=== PATIENT | male | born 1965 | race Caucasian/White ===

== ENCOUNTER 2018-09-18 11:16 | Inpatient (IN) | payer MEDICAID ==
[2018-09-18 12:12] LABS: ADD MAN DIFF? NO
[2018-09-18 12:15] LABS: ABNORMAL IP MESSAGE 1; BASOPHILS % 0.3 % (0.0-2.0); HEMATOCRIT 29.7 % (42.0-52.0); HEMOGLOBIN 9.6 g/dl (14.0-18.0); LYMPHOCYTES # 0.3 10^3/ul (0.8-2.9); LYMPHOCYTES % 6.4 % (15.0-51.0); MEAN CORPUSCULAR HEMOGLOBIN 28.3 pg (29.0-33.0); MEAN CORPUSCULAR HGB CONC 32.3 g/dl (32.0-37.0); MEAN CORPUSCULAR VOLUME 87.6 fl (82.0-101.0); MONOCYTE # 0.4 10^3/ul (0.3-0.9); MONOCYTES % 9.5 % (0.0-11.0); NEUTROPHIL # 3.2 10^3/ul (1.6-7.5); POSITIVE DIFF @See below; RED BLOOD COUNT 3.39 10^6/ul (4.70-6.10); RED CELL DISTRIBUTION WIDTH 21.7 % (11.5-14.5)
[2018-09-18 12:15] LABS: WHITE BLOOD COUNT 3.9 10^3/ul (4.8-10.8)
[2018-09-18 12:20] LABS: PLATELET COUNT 23 10^3/UL (140-415)
[2018-09-18 12:21] LABS: PATH REVIEW? YES
[2018-09-18 12:35] LABS: ALANINE AMINOTRANSFERASE 80 IU/L (13-69); ALBUMIN 3.5 g/dl (3.3-4.9); ALBUMIN/GLOBULIN RATIO 0.94; ALKALINE PHOSPHATASE 179 IU/L (42-121); ANION GAP 9 (5-13); ASPARTATE AMINO TRANSFERASE 161 IU/L (15-46); BILIRUBIN,TOTAL 3.9 mg/dl (0.2-1.3); BLOOD UREA NITROGEN 16 mg/dl (7-20); CALCIUM 8.7 mg/dl (8.4-10.2); CARBON DIOXIDE 26 mmol/L (21-31); CHLORIDE 106 mmol/L (97-110); CREATININE 0.51 mg/dl (0.61-1.24); Estimated GFR > 60 mL/min (>60); GLUCOSE 192 mg/dl (70-220); POTASSIUM 3.5 mmol/L (3.5-5.1); SODIUM 141 mmol/L (135-144); TOTAL PROTEIN 7.2 g/dl (6.1-8.1)
[2018-09-18] MEDS: LORAZEPAM 2 MG INJ IV ×2 (12:37→19:39)
[2018-09-18] MEDS: SOD CHLORIDE 0.9% 1,000 ML IV ×2 (12:37→15:58)
[2018-09-18 12:41] LABS: ACETAMINOPHEN < 10.0 ug/ml (10.0-30.0); SALICYLATE < 1.0 mg/dl (5.0-30.0)
[2018-09-18 12:45] LABS: ADD UMIC YES; UR ASCORBIC ACID NEGATIVE (NEGATIVE); UR BILIRUBIN (Dip) NEGATIVE (NEGATIVE); UR BLOOD (Dip) 2+ mg/dL (NEGATIVE); UR CLARITY CLEAR (CLEAR); UR COLOR AMBER (YELLOW); UR GLUCOSE (Dip) 3+ mg/dL (NEGATIVE); UR KETONES (Dip) 1+ mg/dL (NEGATIVE); UR LEUKOCYTE ESTERASE (Dip) NEGATIVE Leu/ul (NEGATIVE); UR NITRITE (Dip) NEGATIVE (NEGATIVE); UR RBC 41 /HPF (0-5); UR SPECIFIC GRAVITY (Dip) 1.027 (1.003-1.030); UR TOTAL PROTEIN (Dip) 1+ mg/dl (NEGATIVE); UR UROBILINOGEN (Dip) 2+ mg/dL (NEGATIVE); UR WBC 2 /HPF (0-5)
[2018-09-18 12:50] LABS: ANISOCYTOSIS 1+ (0-0); BAND NEUTROPHILS #M 0.1 10^3/ul (0.0-0.6); BAND NEUTROPHILS % (M) 4 % (0-4); ERYTHROBLAST% (NRBC) (M) 1 % (0-0); HYPOCHROMASIA 3+ (0-0); LYMPHOCYTES #M 0.1 10^3/ul (0.8-2.9); LYMPHOCYTES % (M) 4 % (15-51); MONOCYTE #M 0.1 10^3/ul (0.3-0.9); MONOCYTES % (M) 3 % (0-11); PLATELET ESTIMATE DECREASED; POLYCHROMASIA 1+ (0-0); SEG NEUT #M 3.5 10^3/ul (1.6-7.5); SEGMENTED NEUTROPHILS (M) % 89 % (39-77)
[2018-09-18 13:15] LABS: AMPHETAMINE/METHAMPHETAMINE Negative (NEGATIVE); BARBITURATES Negative (NEGATIVE); BENZODIAZEPINES Negative (NEGATIVE); CANNABINOIDS Negative (NEGATIVE); COCAINE Negative (NEGATIVE); OPIATES Negative (NEGATIVE)
[2018-09-18] MEDS ORDERED: NACL 0.9% 3 ML SYG IV (15:30)
[2018-09-18] MEDS ORDERED: MAGNESIUM HYDROXIDE 30ML CUP PO (15:30)
[2018-09-18] MEDS ORDERED: DOCUSATE SODIUM 100 MG CAP PO (15:30)
[2018-09-18 15:44] LABS: HAAIG REFLEX REFLEX FILED
[2018-09-18] MEDS: CHLORDIAZEPOXIDE 25 MG CAP PO ×2 (15:58→22:46)
[2018-09-18] MEDS ORDERED: hydrALAzine 20 MG INJ IV (16:00)
[2018-09-18 16:05] LABS: IRON 250 ug/dl (35-150)
[2018-09-18] MEDS: ONDANSETRON 4 MG INJ IV (16:07)
[2018-09-18 16:15] LABS: % IRON SATURATION 85 % SAT (22-52); TOTAL IRON BINDING CAPACITY 293 ug/dl (241-421)
[2018-09-18] MEDS: MULTIVITAMINS 10 ML, THIAMINE 100 MG, FOLIC ACID 1 MG in SOD CHLORIDE 0.9% 1,000 ML IVPB (16:19)
[2018-09-18 16:39] LABS: HEPATITIS B SURFACE ANTIGEN NEGATIVE (NEGATIVE)
[2018-09-18 16:58] LABS: HEPATITIS B CORE ANTIBODY NEGATIVE (NEGATIVE); HEPATITIS C VIRAL ANTIBODY NEGATIVE (NEGATIVE)
[2018-09-18 23:34] LABS: ADD MAN DIFF? NO
[2018-09-18 23:37] LABS: WHITE BLOOD COUNT 4.6 10^3/ul (4.8-10.8)
[2018-09-18 23:37] LABS: ABNORMAL IP MESSAGE 1; BASOPHILS % 0.2 % (0.0-2.0); EOSINOPHILS % 0.2 % (0.0-7.0); HEMATOCRIT 25.7 % (42.0-52.0); HEMOGLOBIN 8.5 g/dl (14.0-18.0); LYMPHOCYTES # 0.3 10^3/ul (0.8-2.9); LYMPHOCYTES % 6.7 % (15.0-51.0); MEAN CORPUSCULAR HEMOGLOBIN 29.2 pg (29.0-33.0); MEAN CORPUSCULAR HGB CONC 33.1 g/dl (32.0-37.0); MEAN CORPUSCULAR VOLUME 88.3 fl (82.0-101.0); MONOCYTE # 0.5 10^3/ul (0.3-0.9); MONOCYTES % 10.6 % (0.0-11.0); NEUTROPHIL # 3.8 10^3/ul (1.6-7.5); NEUTROPHILS % 81.7 % (39.0-77.0); NUCLEATED RED BLOOD CELLS% 0.4 /100WBC (0.0-0.0); POSITIVE DIFF @See below; RED BLOOD COUNT 2.91 10^6/ul (4.70-6.10); RED CELL DISTRIBUTION WIDTH 21.7 % (11.5-14.5)
[2018-09-18 23:56] LABS: PLATELET COUNT 24 10^3/UL (140-415)
[2018-09-19] MEDS: SOD CHLORIDE 0.9% 1,000 ML IV ×4 (01:20→21:20)
[2018-09-19] MEDS: PANTOPRAZOLE IV 80 MG in SOD CHLORIDE 0.9% 100 ML IV ×3 (01:36→21:59)
[2018-09-19] MEDS: LORAZEPAM 2 MG INJ IV (01:47)
[2018-09-19] MEDS ORDERED: PANTOPRAZOLE 40 MG INJ IV (06:00)
[2018-09-19 06:26] LABS: WHITE BLOOD COUNT 3.4 10^3/ul (4.8-10.8)
[2018-09-19 06:26] LABS: ABNORMAL IP MESSAGE 1; HEMOGLOBIN 8.2 g/dl (14.0-18.0); MEAN CORPUSCULAR HEMOGLOBIN 29.3 pg (29.0-33.0); MEAN CORPUSCULAR HGB CONC 32.8 g/dl (32.0-37.0); MEAN CORPUSCULAR VOLUME 89.3 fl (82.0-101.0); POSITIVE DIFF @See below; RED CELL DISTRIBUTION WIDTH 21.9 % (11.5-14.5)
[2018-09-19 06:44] LABS: ADD MAN DIFF? YES; ALANINE AMINOTRANSFERASE 62 IU/L (13-69); ALBUMIN 2.8 g/dl (3.3-4.9); ALBUMIN/GLOBULIN RATIO 0.84; ALKALINE PHOSPHATASE 140 IU/L (42-121); ANION GAP 5 (5-13); ASPARTATE AMINO TRANSFERASE 106 IU/L (15-46); BILIRUBIN,INDIRECT 2.2 mg/dl (0-1.1); BILIRUBIN,TOTAL 2.4 mg/dl (0.2-1.3); BLOOD UREA NITROGEN 15 mg/dl (7-20); CALCIUM 8.2 mg/dl (8.4-10.2); CARBON DIOXIDE 25 mmol/L (21-31); CHLORIDE 111 mmol/L (97-110); CREATININE 0.54 mg/dl (0.61-1.24); Estimated GFR > 60 mL/min (>60); GLUCOSE 129 mg/dl (70-220); PLATELET COUNT 22 10^3/UL (140-415); POTASSIUM 3.3 mmol/L (3.5-5.1); SODIUM 141 mmol/L (135-144); TOTAL PROTEIN 6.1 g/dl (6.1-8.1)
[2018-09-19 07:29] LABS: ANISOCYTOSIS 2+ (0-0); BAND NEUTROPHILS % (M) 2 % (0-4); BASOPHILS % (M) 1 % (0-2); ERYTHROBLAST% (NRBC) (M) 1 % (0-0); HYPOCHROMASIA 1+ (0-0); LYMPHOCYTES #M 0.5 10^3/ul (0.8-2.9); LYMPHOCYTES % (M) 16 % (15-51); MONOCYTE #M 0.1 10^3/ul (0.3-0.9); MONOCYTES % (M) 3 % (0-11); PLATELET ESTIMATE DECREASED; POLYCHROMASIA 1+ (0-0); SEG NEUT #M 2.7 10^3/ul (1.6-7.5); SEGMENTED NEUTROPHILS (M) % 78 % (39-77); SMUDGE%M 22 % (0-0); TARGET CELLS 1+ (0-0)
[2018-09-19] MEDS: MULTIVITAMINS 10 ML, THIAMINE 100 MG, FOLIC ACID 1 MG in SOD CHLORIDE 0.9% 1,000 ML IVPB (08:33)
[2018-09-19] MEDS: CHLORDIAZEPOXIDE 25 MG CAP PO ×3 (08:33→22:30)
[2018-09-19] MEDS ORDERED: MULTIVITAMINS 10 ML, THIAMINE 100 MG, FOLIC ACID 1 MG in SOD CHLORIDE 0.9% 1,000 ML IVPB (09:00)
[2018-09-19] MEDS: POTASSIUM CHLORIDE (SR) 20 MEQ TAB PO (09:53)
[2018-09-19 16:55] LABS: INR 1.45; PROTIME 17.7 Sec (11.9-14.9); PT RATIO 1.4
[2018-09-19 23:06] LABS: TYPE AND SCREEN 1 1
[2018-09-20] MEDS: SOD CHLORIDE 0.9% 1,000 ML IV ×3 (03:54→17:20)
[2018-09-20 06:09] LABS: ADD MAN DIFF? NO
[2018-09-20 06:16] LABS: ABNORMAL IP MESSAGE 1; EOSINOPHILS % 1.3 % (0.0-7.0); HEMOGLOBIN 8.8 g/dl (14.0-18.0); LYMPHOCYTES # 0.8 10^3/ul (0.8-2.9); LYMPHOCYTES % 24.6 % (15.0-51.0); MEAN CORPUSCULAR HEMOGLOBIN 28.9 pg (29.0-33.0); MEAN CORPUSCULAR HGB CONC 32.6 g/dl (32.0-37.0); MEAN CORPUSCULAR VOLUME 88.8 fl (82.0-101.0); MONOCYTE # 0.5 10^3/ul (0.3-0.9); MONOCYTES % 14.9 % (0.0-11.0); NEUTROPHIL # 1.8 10^3/ul (1.6-7.5); NEUTROPHILS % 57.9 % (39.0-77.0); PLATELET COUNT 39 10^3/UL (140-415); POSITIVE DIFF @See below; RED BLOOD COUNT 3.04 10^6/ul (4.70-6.10); RED CELL DISTRIBUTION WIDTH 21.1 % (11.5-14.5)
[2018-09-20 06:16] LABS: WHITE BLOOD COUNT 3.1 10^3/ul (4.8-10.8)
[2018-09-20 06:48] LABS: ALANINE AMINOTRANSFERASE 63 IU/L (13-69); ALBUMIN/GLOBULIN RATIO 0.83; ALKALINE PHOSPHATASE 178 IU/L (42-121); ANION GAP 8 (5-13); ASPARTATE AMINO TRANSFERASE 107 IU/L (15-46); BILIRUBIN,INDIRECT 1.8 mg/dl (0-1.1); BLOOD UREA NITROGEN 9 mg/dl (7-20); CALCIUM 8.3 mg/dl (8.4-10.2); CARBON DIOXIDE 23 mmol/L (21-31); CHLORIDE 109 mmol/L (97-110); CREATININE 0.52 mg/dl (0.61-1.24); Estimated GFR > 60 mL/min (>60); GLUCOSE 104 mg/dl (70-220); MAGNESIUM 1.9 mg/dl (1.7-2.5); POTASSIUM 3.1 mmol/L (3.5-5.1); SODIUM 140 mmol/L (135-144); TOTAL PROTEIN 6.6 g/dl (6.1-8.1)
[2018-09-20] MEDS: PANTOPRAZOLE IV 80 MG in SOD CHLORIDE 0.9% 100 ML IV (08:34)
[2018-09-20] MEDS: CHLORDIAZEPOXIDE 25 MG CAP PO ×2 (08:34→20:17)
[2018-09-20] MEDS: POTASSIUM CHLORIDE 100 ML IVPB ×2 (09:28→12:30)
[2018-09-20] MEDS: LORAZEPAM 2 MG INJ IV ×2 (09:28→17:07)
[2018-09-20] MEDS: MULTIVITAMINS 10 ML, THIAMINE 100 MG, FOLIC ACID 1 MG in SOD CHLORIDE 0.9% 1,000 ML IVPB (14:20)
[2018-09-20] MEDS: PROPOFOL 40 ML (15:41)
[2018-09-20] MEDS: LIDOCAINE 2% (SDV) 5 ML INJ (15:41)
[2018-09-20] MEDS ORDERED: LABETALOL HCL 20MG INJ IV (16:00)
[2018-09-20] MEDS ORDERED: EPHEDrine SULFATE 50 MG/5 ML SYG IV (16:00)
[2018-09-20] MEDS ORDERED: ONDANSETRON 4 MG INJ IV (16:00)
[2018-09-20] MEDS ORDERED: hydrALAzine 20 MG INJ IV (16:00)
[2018-09-20] MEDS ORDERED: FENTAnyl 50 MCG/ML VIAL IV (16:00)
[2018-09-20] MEDS: POTASSIUM CHLORIDE 20 MEQ in DEXTROSE 5% 100 ML IVPB (17:46)
[2018-09-20] MEDS: PANTOPRAZOLE 40 MG INJ IV (20:15)
[2018-09-20] MEDS: SUCRALFATE 1 GM TAB PO (20:17)
[2018-09-20] MEDS: HALOPERIDOL 5 MG INJ IM (22:00)
[2018-09-21] MEDS: SOD CHLORIDE 0.9% 1,000 ML IV ×3 (03:20→20:45)
[2018-09-21] MEDS: PANTOPRAZOLE 40 MG INJ IV ×2 (05:15→17:28)
[2018-09-21] MEDS: SUCRALFATE 1 GM TAB PO ×4 (05:15→17:28)
[2018-09-21 07:29] LABS: WHITE BLOOD COUNT 2.8 10^3/ul (4.8-10.8)
[2018-09-21 07:29] LABS: ABNORMAL IP MESSAGE 1; HEMATOCRIT 27.2 % (42.0-52.0); HEMOGLOBIN 8.8 g/dl (14.0-18.0); MEAN CORPUSCULAR HEMOGLOBIN 29.4 pg (29.0-33.0); MEAN CORPUSCULAR HGB CONC 32.4 g/dl (32.0-37.0); PLATELET COUNT 42 10^3/UL (140-415); POSITIVE DIFF @See below; RED BLOOD COUNT 2.99 10^6/ul (4.70-6.10); RED CELL DISTRIBUTION WIDTH 21.5 % (11.5-14.5)
[2018-09-21 07:31] LABS: ADD MAN DIFF? YES
[2018-09-21 07:47] LABS: ALANINE AMINOTRANSFERASE 65 IU/L (13-69); ALBUMIN 2.8 g/dl (3.3-4.9); ALBUMIN/GLOBULIN RATIO 0.82; ALKALINE PHOSPHATASE 144 IU/L (42-121); ANION GAP 7 (5-13); ASPARTATE AMINO TRANSFERASE 94 IU/L (15-46); BILIRUBIN,INDIRECT 1.9 mg/dl (0-1.1); BILIRUBIN,TOTAL 2.1 mg/dl (0.2-1.3); BLOOD UREA NITROGEN 8 mg/dl (7-20); CALCIUM 8.2 mg/dl (8.4-10.2); CARBON DIOXIDE 25 mmol/L (21-31); CHLORIDE 110 mmol/L (97-110); CREATININE 0.57 mg/dl (0.61-1.24); Estimated GFR > 60 mL/min (>60); GLUCOSE 86 mg/dl (70-220); MAGNESIUM 1.8 mg/dl (1.7-2.5); SODIUM 142 mmol/L (135-144); TOTAL PROTEIN 6.2 g/dl (6.1-8.1)
[2018-09-21 07:51] LABS: POTASSIUM 2.9 mmol/L (3.5-5.1)
[2018-09-21] MEDS ORDERED: HALOPERIDOL 5 MG INJ IM (09:00)
[2018-09-21] MEDS: CHLORDIAZEPOXIDE 25 MG CAP PO (09:17)
[2018-09-21] MEDS: MULTIVITAMINS 10 ML, THIAMINE 100 MG, FOLIC ACID 1 MG in SOD CHLORIDE 0.9% 1,000 ML IVPB (09:18)
[2018-09-21 09:42] LABS: ANISOCYTOSIS 2+ (0-0); BASOPHILS % (M) 1 % (0-2); EOSINOPHILS % (M) 2 % (0-7); GIANT THROMBO% (M) 2 % (0-0); HYPOCHROMASIA 1+ (0-0); LYMPHOCYTES #M 0.5 10^3/ul (0.8-2.9); LYMPHOCYTES % (M) 18 % (15-51); MONOCYTE #M 0.1 10^3/ul (0.3-0.9); MONOCYTES % (M) 6 % (0-11); PLATELET ESTIMATE DECREASED; POIKILOCYTOSIS 1+ (0-0); POLYCHROMASIA 2+ (0-0); SEGMENTED NEUTROPHILS (M) % 73 % (39-77); SMUDGE%M 47 % (0-0); TARGET CELLS 2+ (0-0)
[2018-09-21] MEDS: POTASSIUM CHLORIDE 100 ML IVPB ×3 (10:34→16:41)
[2018-09-21] MEDS: POTASSIUM CHLORIDE 20 MEQ POWDER FOR ORAL SOLN PO (10:34)
[2018-09-21] MEDS: MAGNESIUM SULFATE 2 GM/50 ML 50 ML IVPB (10:35)
[2018-09-21] MEDS: LORAZEPAM 2 MG INJ IV ×2 (12:51→20:45)
[2018-09-21 14:53] LABS: AMMONIA 45 umol/l (9-30); PHOSPHORUS 3.5 mg/dl (2.5-4.9)
[2018-09-22] MEDS: SUCRALFATE 1 GM TAB PO ×5 (00:18→23:02)
[2018-09-22] MEDS: SOD CHLORIDE 0.9% 1,000 ML IV ×3 (05:46→19:20)
[2018-09-22] MEDS: PANTOPRAZOLE 40 MG INJ IV ×2 (05:47→17:46)
[2018-09-22 07:00] LABS: ABNORMAL IP MESSAGE 1; HEMATOCRIT 27.9 % (42.0-52.0); MEAN CORPUSCULAR HEMOGLOBIN 29.3 pg (29.0-33.0); MEAN CORPUSCULAR HGB CONC 32.3 g/dl (32.0-37.0); MEAN CORPUSCULAR VOLUME 90.9 fl (82.0-101.0); POSITIVE DIFF @See below; RED BLOOD COUNT 3.07 10^6/ul (4.70-6.10); RED CELL DISTRIBUTION WIDTH 22.1 % (11.5-14.5)
[2018-09-22 07:00] LABS: WHITE BLOOD COUNT 2.6 10^3/ul (4.8-10.8)
[2018-09-22 07:03] LABS: PLATELET COUNT 42 10^3/UL (140-415)
[2018-09-22 07:04] LABS: ADD MAN DIFF? YES
[2018-09-22 07:46] LABS: ALANINE AMINOTRANSFERASE 65 IU/L (13-69); ALBUMIN 2.9 g/dl (3.3-4.9); ALBUMIN/GLOBULIN RATIO 0.85; ALKALINE PHOSPHATASE 176 IU/L (42-121); ANION GAP 7 (5-13); ASPARTATE AMINO TRANSFERASE 97 IU/L (15-46); BILIRUBIN,INDIRECT 1.5 mg/dl (0-1.1); BILIRUBIN,TOTAL 1.5 mg/dl (0.2-1.3); BLOOD UREA NITROGEN 8 mg/dl (7-20); CALCIUM 8.2 mg/dl (8.4-10.2); CARBON DIOXIDE 24 mmol/L (21-31); CHLORIDE 108 mmol/L (97-110); CREATININE 0.53 mg/dl (0.61-1.24); Estimated GFR > 60 mL/min (>60); GLUCOSE 115 mg/dl (70-220); MAGNESIUM 1.9 mg/dl (1.7-2.5); POTASSIUM 3.2 mmol/L (3.5-5.1); SODIUM 139 mmol/L (135-144); TOTAL PROTEIN 6.3 g/dl (6.1-8.1)
[2018-09-22] MEDS: CHLORDIAZEPOXIDE 25 MG CAP PO (08:12)
[2018-09-22] MEDS: MULTIVITAMINS 10 ML, THIAMINE 100 MG, FOLIC ACID 1 MG in SOD CHLORIDE 0.9% 1,000 ML IVPB (08:13)
[2018-09-22] MEDS: POTASSIUM CHLORIDE (SR) 20 MEQ TAB PO ×2 (09:20→13:00)
[2018-09-22 09:59] LABS: ANISOCYTOSIS 2+ (0-0); BASOPHILS % (M) 1 % (0-2); EOSINOPHILS % (M) 1 % (0-7); HYPOCHROMASIA 1+ (0-0); LYMPHOCYTES #M 0.5 10^3/ul (0.8-2.9); LYMPHOCYTES % (M) 22 % (15-51); MONOCYTE #M 0.2 10^3/ul (0.3-0.9); MONOCYTES % (M) 9 % (0-11); PLATELET ESTIMATE DECREASED; POLYCHROMASIA 2+ (0-0); SEGMENTED NEUTROPHILS (M) % 67 % (39-77); SMUDGE%M 5 % (0-0); TARGET CELLS 1+ (0-0)
[2018-09-22] MEDS: RIFAXIMIN 550 MG TAB PO ×2 (12:59→21:04)
[2018-09-22] MEDS: LACTULOSE 30ML CUP PO ×2 (13:58→21:04)
[2018-09-22] MEDS: ACETAMINOPHEN 325 MG TAB PO (23:02)
[2018-09-23] MEDS: SOD CHLORIDE 0.9% 1,000 ML IV ×3 (01:09→15:20)
[2018-09-23 05:30] LABS: ADD MAN DIFF? NO
[2018-09-23 05:50] LABS: ABNORMAL IP MESSAGE 1; BASOPHILS % 0.9 % (0.0-2.0); EOSINOPHILS # 0.1 10^3/ul (0.0-0.5); HEMOGLOBIN 9.4 g/dl (14.0-18.0); LYMPHOCYTES # 0.9 10^3/ul (0.8-2.9); LYMPHOCYTES % 25.7 % (15.0-51.0); MEAN CORPUSCULAR HEMOGLOBIN 29.4 pg (29.0-33.0); MEAN CORPUSCULAR HGB CONC 32.4 g/dl (32.0-37.0); MEAN CORPUSCULAR VOLUME 90.6 fl (82.0-101.0); MONOCYTE # 0.7 10^3/ul (0.3-0.9); MONOCYTES % 20.9 % (0.0-11.0); NEUTROPHIL # 1.8 10^3/ul (1.6-7.5); NEUTROPHILS % 49.9 % (39.0-77.0); POSITIVE DIFF @See below; RED CELL DISTRIBUTION WIDTH 21.4 % (11.5-14.5)
[2018-09-23 05:50] LABS: WHITE BLOOD COUNT 3.5 10^3/ul (4.8-10.8)
[2018-09-23 05:54] LABS: PLATELET COUNT 54 10^3/UL (140-415)
[2018-09-23] MEDS: SUCRALFATE 1 GM TAB PO ×4 (05:59→23:33)
[2018-09-23] MEDS: PANTOPRAZOLE 40 MG INJ IV ×2 (05:59→17:16)
[2018-09-23] MEDS: LACTULOSE 30ML CUP PO ×3 (05:59→23:33)
[2018-09-23 06:04] LABS: ALANINE AMINOTRANSFERASE 69 IU/L (13-69); ALBUMIN/GLOBULIN RATIO 0.81; ALKALINE PHOSPHATASE 218 IU/L (42-121); ANION GAP 9 (5-13); ASPARTATE AMINO TRANSFERASE 95 IU/L (15-46); BILIRUBIN,INDIRECT 1.2 mg/dl (0-1.1); BILIRUBIN,TOTAL 1.2 mg/dl (0.2-1.3); BLOOD UREA NITROGEN 8 mg/dl (7-20); CALCIUM 8.5 mg/dl (8.4-10.2); CARBON DIOXIDE 25 mmol/L (21-31); CHLORIDE 106 mmol/L (97-110); CREATININE 0.53 mg/dl (0.61-1.24); Estimated GFR > 60 mL/min (>60); GLUCOSE 116 mg/dl (70-220); MAGNESIUM 1.8 mg/dl (1.7-2.5); POTASSIUM 3.5 mmol/L (3.5-5.1); SODIUM 140 mmol/L (135-144); TOTAL PROTEIN 6.7 g/dl (6.1-8.1)
[2018-09-23] MEDS: MULTIVITAMINS 10 ML, THIAMINE 100 MG, FOLIC ACID 1 MG in SOD CHLORIDE 0.9% 1,000 ML IVPB (08:10)
[2018-09-23] MEDS: CHLORDIAZEPOXIDE 25 MG CAP PO (08:10)
[2018-09-23] MEDS: RIFAXIMIN 550 MG TAB PO ×2 (08:10→20:08)
[2018-09-24] MEDS: SOD CHLORIDE 0.9% 1,000 ML IV ×2 (01:20→06:17)
[2018-09-24] MEDS: LACTULOSE 30ML CUP PO ×4 (06:17→23:35)
[2018-09-24] MEDS: SUCRALFATE 1 GM TAB PO ×4 (06:17→23:35)
[2018-09-24] MEDS: PANTOPRAZOLE 40 MG INJ IV (06:17)
[2018-09-24 06:55] LABS: ADD MAN DIFF? NO
[2018-09-24 07:04] LABS: WHITE BLOOD COUNT 4.6 10^3/ul (4.8-10.8)
[2018-09-24 07:04] LABS: ABNORMAL IP MESSAGE 1; BASOPHILS % 0.9 % (0.0-2.0); EOSINOPHILS # 0.1 10^3/ul (0.0-0.5); EOSINOPHILS % 1.7 % (0.0-7.0); HEMATOCRIT 30.4 % (42.0-52.0); HEMOGLOBIN 9.8 g/dl (14.0-18.0); LYMPHOCYTES # 1.5 10^3/ul (0.8-2.9); LYMPHOCYTES % 31.5 % (15.0-51.0); MEAN CORPUSCULAR HEMOGLOBIN 29.3 pg (29.0-33.0); MEAN CORPUSCULAR HGB CONC 32.2 g/dl (32.0-37.0); MEAN PLATELET VOLUME 11.6 fl (7.4-10.4); MONOCYTE # 0.9 10^3/ul (0.3-0.9); MONOCYTES % 19.1 % (0.0-11.0); NEUTROPHIL # 2.1 10^3/ul (1.6-7.5); NEUTROPHILS % 46.4 % (39.0-77.0); PLATELET COUNT 62 10^3/UL (140-415); POSITIVE DIFF @See below; RED BLOOD COUNT 3.34 10^6/ul (4.70-6.10); RED CELL DISTRIBUTION WIDTH 21.5 % (11.5-14.5)
[2018-09-24 07:28] LABS: AMMONIA 39 umol/l (9-30)
[2018-09-24 07:38] LABS: ALANINE AMINOTRANSFERASE 68 IU/L (13-69); ALBUMIN 3.3 g/dl (3.3-4.9); ALBUMIN/GLOBULIN RATIO 0.86; ALKALINE PHOSPHATASE 212 IU/L (42-121); ANION GAP 8 (5-13); ASPARTATE AMINO TRANSFERASE 96 IU/L (15-46); BILIRUBIN,INDIRECT 1.5 mg/dl (0-1.1); BILIRUBIN,TOTAL 1.5 mg/dl (0.2-1.3); BLOOD UREA NITROGEN 9 mg/dl (7-20); CALCIUM 8.9 mg/dl (8.4-10.2); CARBON DIOXIDE 26 mmol/L (21-31); CHLORIDE 108 mmol/L (97-110); CREATININE 0.58 mg/dl (0.61-1.24); Estimated GFR > 60 mL/min (>60); GLUCOSE 120 mg/dl (70-220); MAGNESIUM 1.9 mg/dl (1.7-2.5); POTASSIUM 3.7 mmol/L (3.5-5.1); SODIUM 142 mmol/L (135-144); TOTAL PROTEIN 7.1 g/dl (6.1-8.1)
[2018-09-24 08:03] LABS: ALPHA FETOPROTEIN 2.08 IU/L (0.00-7.21)
[2018-09-24] MEDS: MULTIVITAMINS 10 ML, THIAMINE 100 MG, FOLIC ACID 1 MG in SOD CHLORIDE 0.9% 1,000 ML IVPB (08:56)
[2018-09-24] MEDS: RIFAXIMIN 550 MG TAB PO ×2 (08:56→21:05)
[2018-09-25] MEDS: LACTULOSE 30ML CUP PO (05:41)
[2018-09-25] MEDS: PANTOPRAZOLE (EC) 40 MG TAB PO (05:41)
[2018-09-25] MEDS: SUCRALFATE 1 GM TAB PO ×3 (05:41→17:14)
[2018-09-25 05:48] LABS: ADD MAN DIFF? NO
[2018-09-25 06:00] LABS: WHITE BLOOD COUNT 3.4 10^3/ul (4.8-10.8)
[2018-09-25 06:00] LABS: ABNORMAL IP MESSAGE 1; BASOPHIL # 0.1 10^3/ul (0.0-0.1); BASOPHILS % 1.5 % (0.0-2.0); EOSINOPHILS # 0.1 10^3/ul (0.0-0.5); EOSINOPHILS % 2.7 % (0.0-7.0); HEMATOCRIT 27.3 % (42.0-52.0); HEMOGLOBIN 8.8 g/dl (14.0-18.0); LYMPHOCYTES # 0.9 10^3/ul (0.8-2.9); LYMPHOCYTES % 26.7 % (15.0-51.0); MEAN CORPUSCULAR HEMOGLOBIN 29.7 pg (29.0-33.0); MEAN CORPUSCULAR HGB CONC 32.2 g/dl (32.0-37.0); MEAN CORPUSCULAR VOLUME 92.2 fl (82.0-101.0); MONOCYTE # 0.7 10^3/ul (0.3-0.9); MONOCYTES % 20.8 % (0.0-11.0); NEUTROPHIL # 1.6 10^3/ul (1.6-7.5); NEUTROPHILS % 47.7 % (39.0-77.0); PLATELET COUNT 67 10^3/UL (140-415); POSITIVE DIFF @See below; RED BLOOD COUNT 2.96 10^6/ul (4.70-6.10); RED CELL DISTRIBUTION WIDTH 21.4 % (11.5-14.5)
[2018-09-25 06:19] LABS: ALANINE AMINOTRANSFERASE 70 IU/L (13-69); ALBUMIN 2.8 g/dl (3.3-4.9); ALBUMIN/GLOBULIN RATIO 0.82; ALKALINE PHOSPHATASE 220 IU/L (42-121); ANION GAP 3 (5-13); ASPARTATE AMINO TRANSFERASE 102 IU/L (15-46); BILIRUBIN,INDIRECT 1.3 mg/dl (0-1.1); BILIRUBIN,TOTAL 1.3 mg/dl (0.2-1.3); BLOOD UREA NITROGEN 8 mg/dl (7-20); CALCIUM 8.3 mg/dl (8.4-10.2); CARBON DIOXIDE 29 mmol/L (21-31); CHLORIDE 108 mmol/L (97-110); CREATININE 0.64 mg/dl (0.61-1.24); Estimated GFR > 60 mL/min (>60); GLUCOSE 113 mg/dl (70-220); MAGNESIUM 1.9 mg/dl (1.7-2.5); POTASSIUM 3.7 mmol/L (3.5-5.1); SODIUM 140 mmol/L (135-144); TOTAL PROTEIN 6.2 g/dl (6.1-8.1)
[2018-09-25] MEDS: SOD CHLORIDE 0.9% 1,000 ML IV (07:20)
[2018-09-25] MEDS: RIFAXIMIN 550 MG TAB PO (08:14)
[2018-09-25] MEDS: MULTIVITAMINS 10 ML, THIAMINE 100 MG, FOLIC ACID 1 MG in SOD CHLORIDE 0.9% 1,000 ML IVPB (09:21)
[2018-09-25 12:02] LABS: MITOCHONDRIAL TB NEGATIVE (NEGATIVE); SMOOTH MUSCLE AB SCREEN NEGATIVE (NEGATIVE)
[2018-09-25 14:22] LABS: ANA SCREEN NEGATIVE (NEGATIVE)
[2018-09-25] MEDS ORDERED: LACTULOSE 30ML CUP PO (21:00)
== END 2018-09-25 18:55 | disposition home or self-care (01) | DRG 441 ==
LOC: E/R 11:16 → 5EC 14:21
PROC: 0DJ08ZZ Inspection of Upper Intestinal Tract, Via Natural or Artificial Opening Endoscopic (ICD-10-PCS; principal; 2018-09-20 14:50)
PROC: 30233R1 Transfusion of Nonautologous Platelets into Peripheral Vein, Percutaneous Approach (ICD-10-PCS; 2018-09-20 14:50)
DX: K72.00 Acute and subacute hepatic failure without coma (principal); K29.71 Gastritis, unspecified, with bleeding; F10.239 Alcohol dependence with withdrawal, unspecified; D61.818 Other pancytopenia; K76.6 Portal hypertension; K70.30 Alcoholic cirrhosis of liver without ascites; K70.10 Alcoholic hepatitis without ascites; F10.229 Alcohol dependence with intoxication, unspecified; Z59.0 Homelessness; E87.6 Hypokalemia; K31.89 Other diseases of stomach and duodenum; K44.9 Diaphragmatic hernia without obstruction or gangrene; Y90.0 Blood alcohol level of less than 20 mg/100 ml; Z87.891 Personal history of nicotine dependence
CPT/HCPCS: 36415; 36430; 70450; 74181; 76705; 80053; 80307; 81001; 82105; 82140; 83540; 83735; 84100; 85025; 85610; 86038; 86255; 86644; 86704; 86709; 86803; 86850; 86900; 86901; 87340; 96374; 97110; 97116; 97162; 97165; 97530; 99285-25